=== PATIENT | female | born 1970 | race Caucasian/White ===

== ENCOUNTER → 2018-01-08 | Outpatient (REF) ==
[~2018-01-08] MED LIST: ATOR10TA PO; AZIT500T2 PO; FAMO10TA43 PO; FLUO40CA PO; MULT-974 PO; NCT21TD TD; SUCR1TAB PO
--- NOTE | 2018-01-08 12:02 | Diagnostic Imaging Report ---
INDICATION: History of latent TB skin test. COMPARISON: 01/09/2014. FINDINGS: There are no radiographic findings suggestive of evidence for acute or chronic thoracic involvement by tuberculosis. PA and lateral views of the chest in this patient are normal. The lungs are clear. The heart and vessels are normal. There is no failure, effusion, or pneumothorax. Clips in the gallbladder fossa are noted. No acute chest wall pathology. IMPRESSION: Normal two-view chest. Dictated by: Dictated on workstation # [id number]
== END | disposition home or self-care (01) ==
LOC: OCC 10:14
PROVIDERS: ATTEND Nurse Practitioner Family
CPT/HCPCS: 71046